=== PATIENT | female | born 1960 | race Caucasian/White ===

== ENCOUNTER 2018-07-19 10:54 | Emergency (ER) | payer MEDICAID, SELFPAY ==
[2018-07-19 10:55] VITALS: BP 128/69; PULSE 76; RESP 15; TEMP 36.4; O2SAT 100; BMI 20.5
--- NOTE | 2018-07-19 12:22 | ED.DCSUM_ITS ---
- ER Visit Summary Date of Service: 07/19/18 Chief Complaint: [] Left wrist injury kicked by horse History of Present Illness: The patient is a 58 F [] patient was working with a horse and the horse basically reared up on hind legs kicking her with front legs striking her only in the left wrist, she has pain to the left wrist only no other complaints no past history Physical Examination: [] Vital signs unremarkable General, no distress resting comfortably HEENT is generally unremarkable The neck is supple no adenopathy Cardiovascular, regular rate and rhythm Lungs, clear bilateral Abdomen, soft nontender Extremities, no clubbing cyanosis or edema she has some discomfort what appears to be slight deformity to the left wrist, hand function is normal, finger function normal nontender the elbow is nontender the shoulder is nontender she has no trauma no other complaints to any other part of her body Neurologic, awake alert answering questions appropriately moving all 4 extremities Test Results: [] Emergency Department Course and Treatment: [] X-rays obtained of the wrist pain management we will try to remove a ring on her thumb Treatment Plan: [] Left wrist, ray shows nondisplaced fracture distal radius per radiology, place was placed in AP splints good comfort post procedure normal movement cap refill sensation to the fingertips, explained the results to her the need to keep the splint on follow-up with orthopedics on-call Dr. Wilmar Terrazas for pain ice elevation and return for change in symptoms Disposition: [] Home stable Impression: [] Left wrist fracture This note was generated with [employer] dictation software. It may contain incorrect words, spelling, and punctuation that were not noted in review of the chart prior to signing ED Disposition - Plan for ED Patient: Referrals: Eliud Mcintosh MD [Primary Care Provider] -
[2018-07-19] MEDS: HYDROcodone Bitartrate/Apap 5/325 Tablet PO (12:23)
[2018-07-19] MEDS: Ondansetron ODT 4 MG Tablet PO (12:23)
--- NOTE | 2018-07-19 12:33 | RAD_ITS ---
STUDY: X-RAY - LEFT WRIST REASON FOR EXAM: Female, 58 years old. History of trauma. TECHNIQUE: 3 view(s) of the wrist were obtained. COMPARISON: None. FINDINGS: There is a nondisplaced transverse fracture of the distal radial metaphysis. Normal radiocarpal articulation. Normal distal radioulnar articulation. Normal carpal bones. Normal carpal articulations. Normal carpometacarpal articulation of the thumb. Normal second through fifth carpometacarpal articulations. Normal visualized metacarpal bones. Soft tissue swelling. RAD/Wrist min 3 Views IMPRESSION: Nondisplaced transverse fracture of the distal radial metaphysis with overlying soft tissue swelling. Electronically Signed: Michel Collins, at 12:57 EDT , Service support ,
--- NOTE | 2018-07-19 14:50 | ED.DEP ---
ED Disposition - Plan for ED Patient: Instructions: ED Fx Colles Wrist No Redu Requ Prescriptions: Hydrocodone Bitart/Apap 5-325 [[place] 5MG-325MG] 1 tab PO Q4H PRN PRN 2 Days #10 tab PRN Reason: Pain Referrals: Eliud Mcintosh MD [Primary Care Provider] - Greg Urban MD [STAFF PHYSICIAN] -
[2018-07-19 15:06] VITALS: BP 94/58; PULSE 54; RESP 16; O2SAT 96
--- NOTE | 2018-07-19 15:06 | ED.RN ---
REVIEWED D/C INSTRUCTIONS, FOLLOW UP CARE, PRESCRIPTION, AND S/S THAT WOULD WARRANT A RETURN TO THE ED WITH PT. PT VERBALIZED AN UNDERSTANDING AND DENIES FURTHER QUESTIONS FOR THIS RN. PT SKIN P/W/D, RESP EVEN AND UNLABORED, PT A&O X 3, NO DISTRESS NOTED. PT AMBULATED OUT OF ED, GAIT STEADY.
[2018-07-19 15:07] VITALS: BP 94/58; PULSE 54; RESP 16; O2SAT 96
== END 2018-07-19 15:08 | disposition home or self-care (01) ==
PROVIDERS: Emergency Provider Emergency Medicine; Family Provider Family Medicine; PCP Family Medicine
DX: S52.502A Unspecified fracture of the lower end of left radius, initial encounter for closed fracture (principal); W55.12XA Struck by horse, initial encounter; Y93.9 Activity, unspecified; Y92.9 Unspecified place or not applicable
CPT/HCPCS: 29125; 73110; 99283